=== PATIENT | male | born 1960 | race Caucasian/White ===

== ENCOUNTER 2017-07-19 08:19 | Outpatient (CLI) | payer OTHER ==
--- NOTE | 2017-07-19 10:56 | RAD ---
TWO VIEWS LUMBAR SPINE: 07/19/2017 HISTORY: Low back pain with pain radiating into the bilateral legs. FINDINGS: There is a wedge-shaped compression fracture of the T12 vertebral body. There is suggestion of slig ht retropulsion of the posterior-superior endplate, which, by definition, makes this a burst type fr acture. Vertebral body heights of the lumbar spine are within normal limits. No additional fractur e or subluxation is seen. There is mild exaggerated kyphosis of the thoracolumbar spine, centered a t the level of the compression fracture. Vertebral body heights and intervertebral disk spaces of t he lumbar spine are within normal limits. IMPRESSION: 1. Burst type fracture involving the T12 vertebral body with at least 50% loss of height anteriorly . There is slight retropulsion of the posterior-superior endplate into the central spinal canal. 2. Questionable mild height loss of the T9 vertebral body, but this is only partially visualized on the AP projection, and this cannot be definitively confirmed. 3. No fracture or subluxation involving the lumbar spine. 4. Acuteness of the fractures involving the lower thoracic spine could not be determined based on p denita film evaluation. 5. Vascular calcifications in the abdominal aorta. POS: [facility]
--- NOTE | 2017-07-19 11:09 | CT ---
HEAD CT WITHOUT CONTRAST: Date: 07/19/17 COMPARISON: None. HISTORY: Fall in February 2017. Low back pain with bilateral lower extremity radiculopathy. TECHNIQUE: Serial axial CT imaging at 4.5 mm intervals from vertex through skull base without contrast. FINDINGS: Imaged paranasal sinuses/mastoid air cells grossly unremarkable. No displaced calvarial fracture. No intracranial hemorrhage, midline shift, mass effect, or ventricular enlargement. IMPRESSION: No intracranial hemorrhage or displaced calvarial fracture. POS: [facility]
--- NOTE | 2017-07-19 12:38 | CT ---
CT OF THE THORACIC SPINE: 07/19/2017 HISTORY: Thoracic compression fracture. Fall in February 2017. Low back pain with pain radiating into the legs. COMPARISON: None. TECHNIQUE: Serial axial CT imaging at 3 mm intervals obtained through the thoracic spine without contrast. Cor onal and sagittal reformatted imaging obtained. FINDINGS: Age-indeterminate superior endplate fracture noted at T3, with approximately 20% loss of vertebral b stephen height anteriorly. Age-indeterminate T4 anterior wedge compression fracture noted with approxim ately 35% loss of vertebral body height anteriorly. No evidence for fracture of T1, T2, T5, T6, or T7. Age indeterminate T8 superior endplate fracture noted with approximately 25% vertebral body hei ght loss at the fracture site. Age-indeterminate superior endplate fracture/anterior wedge compression fracture of T9 present, with approximately 50% loss of vertebral body height anteriorly. T10 vertebral body demonstrates no eddie dence for fracture. Minimal anterior wedging of the T11 vertebral body suggests age-indeterminate mild anterior wedge co mpression fracture with approximately 20% loss of vertebral body height anteriorly. There is an age-indeterminate anterior wedge compression fracture of T12 with prominent anterior los s of vertebral body height in the 50%-60% range. There is an abnormal appearance of bilateral facet joints at the T11-T12 level, suggesting that the facet joints are partially dislocated/perched. At the level of the bilateral T11-T12 facet joints, there is no fracture line seen. Space between the spinous process of T11 and T12 is widened. Findi ngs suggest age indeterminate, likely chronic ligamentous injury and facet injuries. There is minim al retropulsion at the superior endplate of the T12 vertebral body fracture. No significant anterol isthesis or retrolisthesis is seen. The imaged lung parenchyma demonstrate significant subpleural emphysematous change, most prominent i n the right lung apex. There is a focal area of irregular pleural thickening and adjacent linear pulmonary parenchymal opac ity in the right lung apex, posteriorly, best seen on axial image 18. Dedicated CT examination of t he chest is advised for full characterization. No definite acute fracture is noted. IMPRESSION: 1. Numerous age indeterminate thoracic spine fractures, most prominently involving the T12 vertebra l body, where there is mild retropulsion, and there is what appears to be chronic subluxation of the T11-T12 facet joints, with a perched configuration. Widening of the interspace between the T11 and T12 spinous processes suggest age-indeterminate, likely subacute/chronic ligamentous injury in this region. Correlation with comparison imaging and/or MRI is required if available. 2. Subpleural emphysematous changes. Focal area of irregular pleural thickening and adjacent pulmo nary parenchymal opacity in the right lung apex, which should be further assessed with a dedicated C T examination of the chest. CODE T POS: [facility]
--- NOTE | 2017-07-19 13:10 | MRI ---
MRI OF THE THORACIC SPINE WITHOUT CONTRAST: 07/19/2017 HISTORY: Evaluate thoracic spine compression fractures. TECHNIQUE: Multiplanar, multisequence MR imaging of the thoracic spine is obtained without contrast. FINDINGS: The sagittal STIR imaging demonstrates no focal area of osseous marrow edema to suggest the presence of acute fracture. Thus, multiple thoracic spine fractures seen on the CT exam, also performed on 07/19/2017, are chronic in nature. This includes fractures of T3, T4, T8, T9, T11, and T12. In add ition, there is no increased STIR signal at the area of widening between the T11 and T12 spinous pro cesses. There is also no edema in the region of the partially perched bilateral T11-T12 facets, sug gesting that the partial T11-T12 facet dislocation and the ligamentous injury of the interspinous li gament at T11-T12 is not acute. There is no significant anterolisthesis or retrolisthesis seen within the thoracic spine. There is mild disk bulge at T11-T12 and mild retropulsion associated with the superior endplate fracture comp onent of the T12 fracture with no significant central canal stenosis. There is no evidence for significant central canal stenosis at any level within the thoracic spine. No significant neural foraminal stenosis is noted at any level within the thoracic spine on either s chris. There is a focal area of central increased T2 signal intensity within the thoracic cord, centered at the T6-T7 level, measuring 4 x 2 mm. This is not in an area of prior trauma/fracture. This may re present a focal syrinx with mild extension superior and inferiorly. Given the size and focal nature of this central thoracic cord T2 hyperintense focus, follow-up post contrast imaging is advised to exclude an underlying lesion. Above and below this focal area of increased T2 signal, there is thin central T2 hyperintensity posterior to the T6 and T7 vertebral body, suggesting an associated small caliber syrinx. IMPRESSION: 1. Numerous prior fracture deformities of the thoracic spine, most prominent at the T12 level. At T11-T12, there is chronic appearing partial perched facets bilaterally with a chronic appearing inte rspinous ligament injury of T11-T12. 2. Focal area of abnormal increased T2 signal within the central aspect of the thoracic cord, cente red at T6-T7. Given the focal nature and size of this T2 hyperintensity, post contrast imaging is a dvised to exclude underlying enhancement. CODE T POS: [facility]
--- NOTE | 2017-07-19 13:20 | MRI ---
LUMBAR SPINE MRI WITHOUT CONTRAST: 07/19/2017 HISTORY: Low back pain. Fall in February 2017. Low back pain with pain radiating into the bilateral legs. COMPARISON: None. TECHNIQUE: Multiplanar, multisequence MR imaging of the lumbar spine obtained without contrast. FINDINGS: The sagittal STIR imaging demonstrates no focal area of osseous marrow edema. Assuming five lumbar type vertebral bodies, the conus medullaris terminates at the T12 level. T12-L1: There is mild disk space narrowing and disk desiccation with no significant central canal o r neural foraminal stenosis. L1-L2: Intervertebral disk height and signal intensity are within normal limits. There is no signi ficant central canal or neural foraminal stenosis. L2-L3: Mild bilateral facet hypertrophy. Intervertebral disk height and signal intensity are withi n normal limits with no significant central canal or neural foraminal stenosis. L3-L4: There is disk space narrowing, disk desiccation, and mild disk bulge. There is a central an nular tear. There is mild bilateral facet hypertrophy. No significant central canal or neural fora corie stenosis. L4-L5: There is disk desiccation, disk space narrowing, minimal disk bulge, and a central annular t ear. No significant central canal stenosis. Mild bilateral facet hypertrophy with no significant c entral canal or neural foraminal stenosis. L5-S1: There is disk space narrowing, disk desiccation, and central annular tear. A tiny central d isk protrusion is noted with no central canal or neural foraminal stenosis. The imaged retroperitoneal structures appear grossly unremarkable. IMPRESSION: Multilevel degenerative disk disease with no significant central canal or neural foraminal stenosis seen within the lumbar spine. POS: IS[facility]LE
== END 2017-07-19 08:20 | disposition home or self-care (01) ==
LOC: TBSIIMAG 08:19
PROVIDERS: ATTEND Surgery
DX: S22.000A Wedge compression fracture of unspecified thoracic vertebra, initial encounter for closed fracture (principal); W19.XXXA Unspecified fall, initial encounter; M54.5 Low back pain; S23.1 Subluxation and dislocation of thoracic vertebra; S22.081A Stable burst fracture of T11-T12 vertebra, initial encounter for closed fracture; I70.0 Atherosclerosis of aorta; M51.36 Other intervertebral disc degeneration, lumbar region
CPT/HCPCS: 70450; 72100; 72128; 72146; 72148

== ENCOUNTER 2017-08-30 13:00 | Outpatient (CLI) | payer OTHER ==
[2017-08-30] MEDS ORDERED: Gadobenate Dimeglumine 529 MG/1 ML (20ML VIAL) ONE (17:26)
--- NOTE | 2017-08-30 18:01 | MRI ---
MRI THORACIC SPINE WITH AND WITHOUT CONTRAST: Technique: Multiplanar, multisequential imaging of the thoracic spine. Post contrast images obtained with administration of 13 cc of MultiHance IV. History: Fall in February with injury to thoracic spine. Thoracic spine fracture. Correlation made to CT thoracic spine, 07-19-17. FINDINGS: There are anterior wedge compression deformities involving the T9 and T12 vertebrae which were seen o n the prior CT. These anterior wedge compression deformities appear stable from that exam. There is n o edema within either of the vertebrae. No edema within any of the other thoracic vertebrae. Superior endplate deformity at T8 with minimal anterior wedging at T8 is also stable. The anterior wedging at T4 seen on the prior exam is again noted and is also stable. There is a posterior disc bulge at T11 and T12 flattening the anterior thecal sac. The anterior subar achnoid space is preserved and there is no impingement or contract with the conus. No other evidence of disc bulge or protrusion. Mild hydromyelia within the central canal at the T5 is noted, best on axial T2 images. IMPRESSION: 1. There are multiple anterior wedge deformities most prominent at T12, T9, and T4. These appear stab le. No evidence of edema within any of the thoracic vertebrae. 2. Broad based bulge at T11, T12 flattens the thecal sac. No central canal stenosis. No abnormal enha ncement. 3. Mild central canal prominence within the cord at T5 through T7 levels. POS: [facility]
== END 2017-08-30 13:01 | disposition home or self-care (01) ==
LOC: TBSIIMAG 13:00
PROVIDERS: ATTEND Surgery
DX: S22.008A Other fracture of unspecified thoracic vertebra, initial encounter for closed fracture (principal); M43.9 Deforming dorsopathy, unspecified
CPT/HCPCS: 72157; A9579